=== PATIENT | female | born 1950 | race African-American/Black ===

== ENCOUNTER 2017-05-09 10:56 | Emergency (ER) | payer MEDICARE ==
[~2017-05-09] VITALS: Ht 160 cm; Wt 99.3 kg
[2017-05-09 11:44] LABS: INFLUENZA A PATIENT NEGATIVE (NEGATIVE); INFLUENZA B PATIENT NEGATIVE (NEGATIVE)
[2017-05-09] MEDS ORDERED: ACETAMINOPHEN 500 MG TABLET PO ONE (12:00)
[2017-05-09] MEDS ORDERED: HYDR115S2 PO (12:14)
[2017-05-09] MEDS ORDERED: ALBU8.5H8 INH (12:14)
--- NOTE | 2017-05-09 12:15 | PHYS DOC ---
Past History Past Medical History: CHF, COPD, Hypertension Past Surgical History: Cholecystectomy Smoking: Non-smoker Alcohol Use: None Drug Use: None Adult General Chief Complaint Chief Complaint: FLU SYMPTOM HPI HPI 66-year-old female patient visiting from [place] complaining of nonproductive cough and nasal congestion and subjective fever since yesterday with generalized myalgia and decrease of appetite. Patient had sick contacts with influenza at home. Patient denies chest pain, shortness of breath, diarrhea and constipation and urinary symptom. Patient states she took Tylenol yesterday but didn't take any medication today. Review of Systems Review of Systems Constitutional: Reports fever Eyes: Denies change in visual acuity, redness, or eye pain [] HENT: Post nasal congestion and sore throat] Respiratory: Reports cough, denies shortness of breath [] Cardiovascular: No additional information not addressed in HPI [] GI: Denies abdominal pain, nausea, vomiting, bloody stools or diarrhea [] : Denies dysuria or hematuria [] Musculoskeletal: Denies back pain or joint pain [] Integument: Denies rash or skin lesions [] Neurologic: Denies headache, focal weakness or sensory changes [] Endocrine: Denies polyuria or polydipsia [] All other systems were reviewed and found to be within normal limits, except as documented in this note. Current Medications Current Medications Current Medications Medications (Trade) Dose Ordered Sig/Erinn Start Time Stop Time Status Last Admin Dose Admin Acetaminophen (Tylenol) 1,000 mg 1X ONCE 05/09/17 12:00 05/09/17 12:01 DC 05/09/17 11:30 1,000 MG Allergies Allergies Allergies Coded Allergies Type Severity Reaction Last Updated Verified iodine Allergy Intermediate 05/09/17 Yes shellfish derived Allergy Intermediate 05/09/17 Yes Physical Exam Physical Exam Constitutional: Well developed, well nourished, mild distress, non-toxic appearance, T-100 [] HENT: Normocephalic, atraumatic, bilateral external ears normal, oropharynx moist, pharyngeal erythema, no oral exudates, nose normal. [] Eyes: PERRLA, EOMI, conjunctiva normal, no discharge. [] Neck: Normal range of motion, no tenderness, supple, no stridor. [] Cardiovascular:Heart rate regular rhythm, no murmur [] Lungs & Thorax: Bilateral breath sounds clear to auscultation [] Abdomen: Bowel sounds normal, soft, no tenderness, no masses, no pulsatile masses. [] Skin: Warm, dry, no erythema, no rash. [] Back: No tenderness, no CVA tenderness. [] Extremities: No tenderness, no cyanosis, no clubbing, ROM intact, no edema. [] Neurologic: Alert and oriented X 3, normal motor function, normal sensory function, no focal deficits noted. [] Psychologic: Affect normal, judgement normal, mood normal. [] Current Patient Data Vital Signs Vital Signs Date Time Temp Pulse Resp B/P (MAP) Pulse Ox O2 Delivery O2 Flow Rate FiO2 05/09/17 11:56 77 18 121/79 (93) 93 Room Air 05/09/17 11:21 100.0 Lab Results Laboratory Tests Test 05/09/17 11:17 Influenza Type A (Rapid) Negative (NEGATIVE) Influenza Type B (Rapid) Negative (NEGATIVE) EKG EKG [] Radiology/Procedures Radiology/Procedures [] Course & Med Decision Making Course & Med Decision Making Pertinent Labs reviewed. (See chart for details) Evaluation of patient in ER showed 66-year-old female patient with flulike symptoms since yesterday and fever up to 100 with negative flu test. Patient treated with Tylenol and felt better. Patient didn't want to have more tests. Plan to discharge patient home to diagnose of flulike symptoms. [] Dragon Disclaimer Dragon Disclaimer This electronic medical record was generated, in whole or in part, using a voice recognition dictation system. Departure Departure: Impression: Primary Impression: Viral respiratory illness Additional Impression: Fever Disposition: 01 HOME, SELF-CARE (At 1211) Condition: IMPROVED Referrals: NON,STAFF (PCP) Patient Instructions: Fever of Unknown Origin, Upper Respiratory Infection, Adult Additional Instructions: Follow-up with your primary care physician in 3-5 days Return to ER if not getting better Scripts Albuterol Sulfate (PROAIR HFA INHALER) 8.5 Gm Hfa.aer.ad 2 PUFF INH PRN Q6HRS Y for SHORTNESS OF BREATH, #1 INHALER 0 Refills Prov: JAYJAY PACHECO MD 05/09/17 Hydrocodone/Chlorphen P-Stirex (Tussionex Pennkinetic Susp) 115 Ml [place].er.12h 5 ML PO BID, #120 ML Prov: JAYJAY PACHECO MD 05/09/17 Problem Qualifiers JAYJAY PACHECO MD May 09, 2017 12:15
[2017-05-09 12:34] VITALS: BP 124/85
== END 2017-05-09 12:32 | disposition home or self-care (01) ==
LOC: ER 10:56
DX: J98.8 Other specified respiratory disorders (principal); B97.89 Other viral agents as the cause of diseases classified elsewhere; I11.0 Hypertensive heart disease with heart failure; I50.9 Heart failure, unspecified; J44.9 Chronic obstructive pulmonary disease, unspecified; Z91.041 Radiographic dye allergy status; Z91.013 Allergy to seafood
CPT/HCPCS: 87804; 99284